=== PATIENT | female | born 1970 | race African-American/Black ===

== ENCOUNTER 2017-06-28 16:36 | Emergency (ER) | payer MEDICAID ==
[~2017-06-28] VITALS: Ht 162.6 cm; Wt 114.0 kg
[2017-06-28 16:59] VITALS: BP 100/63
[2017-06-28] MEDS ORDERED: SODIUM CHLORIDE 0.9% 1,000 ML IV ONE (17:03)
[2017-06-28 17:25] LABS: BASOPHILS % 2.2 % (0.0-2.0); HEMATOCRIT. 37.1 % (36.0-48.0); HEMOGLOBIN. 12.4 g/dL (12.0-16.0); LYMPHOCYTES % 48.9 % (20.0-50.0); MEAN CORPUSCULAR HEMOGLOBIN 29.9 pg (28.0-32.0); MEAN CORPUSCULAR VOLUME 89.6 fL (81.0-99.0); MEAN PLATELET VOLUME 7.7 fl (7.4-10.4); MONOCYTES % 11.5 % (2.0-8.0); NEUTROPHILS % 31.4 % (40.0-76.0); PLATELET 318 x1000/uL (130-400); RED BLOOD CELL COUNT 4.14 mill/uL (4.2-5.4); RED CELL DISTRIBUTION WIDTH 17.3 % (11.6-14.6)
[2017-06-28 17:27] LABS: CHLORIDE 109 mEq/L (98-107)
[2017-06-28 17:35] LABS: CARBON DIOXIDE 23 mEq/L (21-32); ETHANOL BLOOD 129 mg/dL
[2017-06-28 17:36] LABS: HCG SCREEN NEGATIVE
== END 2017-06-28 18:28 | disposition left against medical advice (07) ==
LOC: ER 17:00 → CANBEDREQ 06-29 00:51
DX: T46.5X1A Poisoning by other antihypertensive drugs, accidental (unintentional), initial encounter (principal); R00.1 Bradycardia, unspecified; I95.9 Hypotension, unspecified; F10.129 Alcohol abuse with intoxication, unspecified; I10 Essential (primary) hypertension; G50.0 Trigeminal neuralgia; R51 Headache; Y92.89 Other specified places as the place of occurrence of the external cause
CPT/HCPCS: 36415; 80053; 80307; 80329; 84703; 85025; 93005; 96360; 99285; G0482; J7030; Z7610

== ENCOUNTER 2018-12-09 01:49 | Emergency (ER) | payer MEDICAID ==
[~2018-12-09] VITALS: Ht 162.6 cm; Wt 90.0 kg
[2018-12-09] MEDS ORDERED: ONDANSETRON 4MG ODT PO ONE (02:30)
[2018-12-09] MEDS ORDERED: MORPHINE SULFATE 10 MG/ML CPJ IM ONE (02:30)
[2018-12-09] MEDS ORDERED: KETOROLAC 30MG/ML VIAL IM ONE (02:45)
[2018-12-09] MEDS ORDERED: LORAZEPAM 0.5MG TABLET PO ONE (02:45)
[2018-12-09] MEDS ORDERED: TRAMADOL 50MG TABLET PO ONE (10:00)
[2018-12-09 10:13] VITALS: BP 165/72
== END 2018-12-09 10:19 | disposition home or self-care (01) ==
LOC: ER 01:49
DX: M54.5 Low back pain (principal); M51.26 Other intervertebral disc displacement, lumbar region; I10 Essential (primary) hypertension; F17.210 Nicotine dependence, cigarettes, uncomplicated; Z88.6 Allergy status to analgesic agent
CPT/HCPCS: 81025; 96372; 99284; J1885; Q0162; J2270

== ENCOUNTER 2019-01-07 06:02 | Emergency (ER) | payer MEDICAID ==
[~2019-01-07] VITALS: Ht 162.6 cm; Wt 97.0 kg
[2019-01-07] MEDS ORDERED: DIAZEPAM 5 MG TABLET PO ONE (11:00)
[2019-01-07] MEDS ORDERED: KETOROLAC 30MG/ML VIAL IM ONE (11:00)
[2019-01-07 12:40] VITALS: BP 148/76
== END 2019-01-07 12:46 | disposition home or self-care (01) ==
LOC: ER 06:47
DX: G89.29 Other chronic pain (principal); M54.41 Lumbago with sciatica, right side; I10 Essential (primary) hypertension; Z88.6 Allergy status to analgesic agent; Z88.1 Allergy status to other antibiotic agents
CPT/HCPCS: 96372; 99283; J1885

== ENCOUNTER 2019-04-07 11:03 | Emergency (ER) | payer MEDICAID ==
[~2019-04-07] VITALS: Ht 162.6 cm; Wt 95.0 kg
[2019-04-07] MEDS ORDERED: KETOROLAC 60MG/2ML VIAL IM ONE (14:00)
[2019-04-07] MEDS ORDERED: DEXAMETHASONE 10 MG/ML VIAL IM ONE (14:00)
[2019-04-07 14:48] VITALS: BP 165/95
== END 2019-04-07 14:49 | disposition home or self-care (01) ==
LOC: ER 11:40
DX: M54.41 Lumbago with sciatica, right side (principal); I10 Essential (primary) hypertension; Z88.6 Allergy status to analgesic agent; W10.8XXA Fall (on) (from) other stairs and steps, initial encounter; Y93.89 Activity, other specified; Y92.018 Other place in single-family (private) house as the place of occurrence of the external cause
CPT/HCPCS: 81025; 96372; 99283; J1100; J1885